=== PATIENT | female | born 1995 | race Caucasian/White ===

== ENCOUNTER → 2016-05-21 16:51 | Outpatient (CLI) | payer MEDICAID ==
[~2016-05-21 16:51] MED LIST: HYDROCODONE-APA1 TAB PO
== END | disposition home or self-care (01) ==
LOC: D.US 16:51
DX: R60.0 Localized edema (principal)

== ENCOUNTER 2016-05-27 12:56 | Emergency (ER) | payer MEDICAID | END 2016-05-27 13:46 | disposition home or self-care (01) | LOC: D.ER 12:56 | DX: R22.42 Localized swelling, mass and lump, left lower limb (principal); I83.92 Asymptomatic varicose veins of left lower extremity; K21.9 Gastro-esophageal reflux disease without esophagitis; F17.200 Nicotine dependence, unspecified, uncomplicated ==

== ENCOUNTER → 2016-07-29 15:21 | Outpatient (CLI) | payer MEDICAID | END | disposition home or self-care (01) | LOC: D.US 15:00 | DX: M79.605 Pain in left leg (principal); R22.42 Localized swelling, mass and lump, left lower limb ==

== ENCOUNTER → 2016-09-04 15:44 | Outpatient (CLI) | payer MEDICAID ==
[2016-09-04 16:47] LABS: UDS - AMPHET NEGATIVE QUAL (NEGATIVE); UDS - BARB NEGATIVE QUAL (NEGATIVE); UDS - BENZO NEGATIVE QUAL (NEGATIVE); UDS - COCAINE NEGATIVE QUAL (NEGATIVE); UDS - METH NEGATIVE QUAL (NEGATIVE); UDS - OPIATE NEGATIVE QUAL (NEGATIVE); UDS - PCP NEGATIVE QUAL (NEGATIVE); UDS - THC POSITIVE QUAL (NEGATIVE)
[2016-09-04 16:58] LABS: APPEARANCE CLEAR (CLEAR); BILIRUBIN NEGATIVE (NEGATIVE); COLOR YELLOW (YELLOW); GLUCOSE NEGATIVE (NEGATIVE); KETONE NEGATIVE (NEGATIVE); LEUKOCYTE ESTERASE NEGATIVE (NEGATIVE); NITRITE NEGATIVE (NEGATIVE); PROTEIN NEGATIVE (NEGATIVE); UROBILINOGEN NORMAL (NORMAL)
[2016-09-08 11:16] LABS: UDSC - AMPHET Negative ng/mL (Cutoff=1000); UDSC - BARB Negative ng/mL (Cutoff=300); UDSC - BENZO Negative ng/mL (Cutoff=300); UDSC - COC Negative ng/mL (Cutoff=300); UDSC - METH Negative ng/mL (Cutoff=300); UDSC - OPIATES Negative ng/mL (Cutoff=300); UDSC - PCP Negative ng/mL (Cutoff=25); UDSC - PROPOXY Negative ng/mL (Cutoff=300); UDSC - THC Positive (Cutoff=50)
== END | disposition home or self-care (01) ==
LOC: D.LDO 15:44
PROVIDERS: Obstetrics & Gynecology; Specialist
DX: O26.899 Other specified pregnancy related conditions, unspecified trimester (principal); R10.30 Lower abdominal pain, unspecified

== ENCOUNTER → 2016-09-20 16:11 | Outpatient (CLI) | payer MEDICAID ==
[2016-09-20 17:17] LABS: APPEARANCE CLEAR (CLEAR); BILIRUBIN NEGATIVE (NEGATIVE); COLOR YELLOW (YELLOW); GLUCOSE NEGATIVE (NEGATIVE); KETONE NEGATIVE (NEGATIVE); LEUKOCYTE ESTERASE NEGATIVE (NEGATIVE); NITRITE NEGATIVE (NEGATIVE); PROTEIN NEGATIVE (NEGATIVE); SPECIFIC GRAVITY 1.005 (1.005-1.020); UROBILINOGEN NORMAL (NORMAL)
[2016-09-20 17:24] LABS: UDS - AMPHET NEGATIVE QUAL (NEGATIVE); UDS - BARB NEGATIVE QUAL (NEGATIVE); UDS - BENZO NEGATIVE QUAL (NEGATIVE); UDS - COCAINE NEGATIVE QUAL (NEGATIVE); UDS - METH NEGATIVE QUAL (NEGATIVE); UDS - OPIATE NEGATIVE QUAL (NEGATIVE); UDS - PCP NEGATIVE QUAL (NEGATIVE); UDS - THC POSITIVE QUAL (NEGATIVE)
== END | disposition home or self-care (01) ==
LOC: D.LDO 16:11
PROVIDERS: Obstetrics & Gynecology
DX: Z34.83 Encounter for supervision of other normal pregnancy, third trimester (principal); Z3A.38 38 weeks gestation of pregnancy

== ENCOUNTER 2016-09-27 02:57 | Inpatient (IN) | payer MEDICAID ==
[2016-09-27] VITALS (8 sets, daily range): BP systolic 136–150; BP diastolic 72–97; Ht 157.5 cm; Wt 90.9 kg
[~2016-09-27] VITALS: Ht 157.5 cm; Wt 90.9 kg
[2016-09-27 04:16] LABS: HEMATOCRIT 39.7 % (36.0-48.0); HEMOGLOBIN 13.3 g/dL (12-16); MCH 30.8 pg (26.0-34.0); MCHC 33.5 g/dL (31.0-37.0); MCV 91.9 fL (80.0-100.0); MEAN PLATELET VOLUME 12.2 fL (7.4-10.4); RBC 4.32 10x6/uL (4.00-5.40); RDW 13.4 % (11.5-14.5); WBC 15.1 10x3/uL (4.8-10.8)
[2016-09-27 06:14] LABS: UDS - AMPHET NEGATIVE QUAL (NEGATIVE); UDS - BARB NEGATIVE QUAL (NEGATIVE); UDS - BENZO NEGATIVE QUAL (NEGATIVE); UDS - COCAINE NEGATIVE QUAL (NEGATIVE); UDS - METH NEGATIVE QUAL (NEGATIVE); UDS - OPIATE NEGATIVE QUAL (NEGATIVE); UDS - PCP NEGATIVE QUAL (NEGATIVE); UDS - THC POSITIVE QUAL (NEGATIVE)
[2016-09-27 06:49] LABS: APPEARANCE CLEAR (CLEAR); BILIRUBIN NEGATIVE (NEGATIVE); COLOR YELLOW (YELLOW); EPITHELIAL CELLS 0-5 /hpf (0-5); GLUCOSE NEGATIVE (NEGATIVE); KETONE NEGATIVE (NEGATIVE); LEUKOCYTE ESTERASE NEGATIVE (NEGATIVE); NITRITE NEGATIVE (NEGATIVE); PROTEIN 1+ mg/dL (NEGATIVE); RED CELLS - URINE OCC /hpf (0-5); UROBILINOGEN NORMAL (NORMAL); WHITE CELLS - URINE NSEEN /hpf (0-5)
--- NOTE | 2016-09-27 16:14 | NUR ---
BABY BORN AT 1530
--- NOTE | 2016-09-27 16:52 | NUR ---
FUNDUS FIRM AT UMBILICUS WITH MODERATE LOCIA
--- NOTE | 2016-09-27 17:05 | NUR ---
RECEIVED PATIENT FROM RECOVERY ROOM. ALERT AND ORIENTED. IV NS WITH 20 UNIT PITOCIN INFUSING INTO LEFT HAND, NS AT KVO INFUSING IN RIGHT HAND WITH BLOOD TUBING ATTACHED. U/U FIRM MIDLINE, RUBRA SMALL TO MOD. LOWER ABDOMINAL DRESSING DRY AND INTACT. KAT DRAINING - ATTACHED TO RIGHT THIGH WITH APPROPRIATE PROVIDED CLAMP. VS OBTAINED. SIDERAILS UP X 2, CALL LIGHT PLACED IN REACH.
--- NOTE | 2016-09-27 17:10 | NUR ---
ICE PACK PLACE OVER ABDOMINAL INCISION. PITOCIN PLACED ON ALARIS PUMP AT 125 ML/HR. DILAUDID PICK OUT HAND INITIATED. PT INSTRUCTED ON USE OF PICK OUT HAND CONTROL FOR PAIN. CURRENTLY 3/10 ON PAIN SCALE. CLEAN CHUX AND PERIPADS ON. SCDS IN PLACE AND ON PUMP WHICH IS FUNCTIONING. INSTRUCTED PT ON PURPOSE OF SCDS. ALSO INSTRUCTED SHE WILL BE ON CLEAR LIQUID DIET AND WHEN SHE WILL BE ABLE TO SEE . VERBALIZED UNDERSTANDING. INSTRUCTED ON USE OF INCENTIVE SPIROMETER, PURPOSE AND FREQUENCY. PT DEMONSTRATED APPROPRIATE USE AFTER EXPLANAITION. U/U FIRM, RUBRA SMALL TO MOD. KAT CATH EMPTIED OF 500 ML URINE. SIDE RAILS UP, CALL LIGHT IN REACH.
--- NOTE | 2016-09-27 17:30 | NUR ---
U/U FIRM MIDLINE. RUBRA SMALL TO MOD. TWO PERIPADS PLACED AT THIS TIME. ASKED ABOUT SEEING INFANT. EXPLAINED THAT WILL BE ABLE TO COME OUT OF NURSERY KAL WHEN TEMPERATURE IS WNL. VERBALIZED UNDERSTANDING. TOOK SEVERAL SIPS OF WATER AND TOLERATED WELL.
--- NOTE | 2016-09-27 17:45 | NUR ---
U/U FIRM MIDLINE. RUBRA SMALL TO MOD. ONE PERIPAD REMOVED AND ONE LEFT IN PLACE. WAITING ON TO COME TO ROOM. VISITORS AT BEDSIDE. CALL LIGHT IN REACH.
--- NOTE | 2016-09-27 18:05 | NUR ---
PT SITTING UP IN BED TALKING WITH VISITORS. HOB LOWERED SL - FUNDUS UU/SMALL LOCHIA NOTED ON PAD. NO CLOTS - PERINEAL AREA CLEANSED- PAD CHANGED.
--- NOTE | 2016-09-27 19:10 | NUR ---
AWAKE DURING INITIAL ROUNDS. INTRODUCED SELF. INFORMED PT REGARDING TRANSFER TO [facility]. STATUS POST PRIMARY C/S TODAY FOR FAILURE TO DESCEND. IVF--NS + 20 units PITOCIN TO L HAND. IV SITE OK. SALINE LOCK TO R HAND. KAT CATH TO DRAINAGE BAG--PATENT. ON DILAUDID TRIAL MGR FOR PAIN MANAGEMENT. SCD's TO BOTH LOWER EXTREMITIES TO PREVENT DVT. INCENTIVE SPIROMETER AT BEDSIDE. INFANT IN THE ROOM FOR FEEDINGS. FAMILY HERE.
--- NOTE | 2016-09-27 19:54 | NUR ---
MTL TO ROOM TO DRAW LAB. BACK TO NURSES STATION REPORTS THAT PT IS DIAPHORITIC AND PALE. RN TO ROOM. VSS. FUNDUS FIRM, U2 WITH SMALL AMT RUBRA, NO CLOTS. PT IS TEARFUL AT THIS TIME. STATES THAT SHE IS CONCERNED SINCE [facility] IS HERE TALKING WITH HER REGARDING POSSIBLE HOLD ON HER . PATIENT'S MOTHER IS IN HER ROOM AND PT IS DISCUSSING SITUATION WITH HER. PT REQUEST "A FEW MORE MINUTES TO TALK WITH MY MOM" BEFORE [facility] PERSONEL ARE BACK TO ROOM.
[2016-09-27 19:58] LABS: HEMATOCRIT 37.2 % (36.0-48.0); HEMOGLOBIN 12.4 g/dL (12-16); MCH 30.9 pg (26.0-34.0); MCHC 33.3 g/dL (31.0-37.0); MCV 92.8 fL (80.0-100.0); PLATELET COUNT 204 10x3/uL (130-400); RBC 4.01 10x6/uL (4.00-5.40); RDW 13.6 % (11.5-14.5)
[2016-09-27 20:06] LABS: CALC OSMOLALITY 274 mosm/kg (275-300); CALCIUM 8.4 mg/dL (8.5-10.1); CARBON DIOXIDE 21.5 mmol/L (21.0-32.0); CHLORIDE - SERUM 106 mmol/L (98-107); CREATININE - SERUM 0.6 mg/dL (0.6-1.3); GLUCOSE 90 mg/dL (74-106); POTASSIUM - SERUM 3.4 mmol/L (3.5-5.1); SODIUM 139 mmol/L (136-145); UREA NITROGEN 5 mg/dL (7-18); eGFR NON AFRICAN AMERICAN > 90 mL/min (90-120)
--- NOTE | 2016-09-27 20:10 | NUR ---
DHS WORKER BACK TO ROOM.
[2016-09-27 20:21] LABS: LYMPHOCYTES 6 % (15-50); MONOCYTES 3 % (2-11); NEUTROPHILS 86 % (40-80); PLATELET ESTIMATE NORMAL
--- NOTE | 2016-09-27 20:30 | NUR ---
TRANSFERRED TO ROOM 1221 VIA BED.
--- NOTE | 2016-09-27 20:35 | NUR ---
NURSERY NURSE BROUGHT BABY TO MOM IN OPEN CRIB.
--- NOTE | 2016-09-27 21:30 | NUR ---
KAT/DEVAN-CARE DONE. LIGHT LOCHIA RUBRA. DEVAN-PAD CHANGED. KAT CATH BAG EMPTIED.
--- NOTE | 2016-09-27 23:00 | NUR ---
REFILLED ICE PACK TO ABD.
--- NOTE | 2016-09-27 23:24 | NUR ---
V/S RECHECKED. IN THE ROOM IN OPEN CRIB.
--- NOTE | 2016-09-28 01:10 | NUR ---
EYES CLOSED. LEFT UNDISTURBED.
--- NOTE | 2016-09-28 04:05 | NUR ---
PROFESSOR OF SOCIOLOGY HERE TO DRAW AM LAB.
[2016-09-28 04:24] VITALS: BP 125/77
--- NOTE | 2016-09-28 04:24 | NUR ---
V/S STABLE. KAT CATH BAG EMPTIED. IV PUMP CLEARED. IN THE ROOM.
[2016-09-28 04:49] LABS: BASOPHILS 0.1 % (0-2); EOSINOPHILS 0.3 % (0-7); HEMOGLOBIN 11.5 g/dL (12-16); IMMATURE GRANULOCYTES 0.6 % (0-5); LYMPHOCYTES 9.9 % (15-50); MCH 30.9 pg (26.0-34.0); MCHC 33.8 g/dL (31.0-37.0); MCV 91.4 fL (80.0-100.0); MEAN PLATELET VOLUME 12.2 fL (7.4-10.4); MONOCYTES 6.9 % (2-11); NEUTROPHILS 82.2 % (40-80); PLATELET COUNT 194 10x3/uL (130-400); RBC 3.72 10x6/uL (4.00-5.40); RDW 13.3 % (11.5-14.5)
[2016-09-28 04:52] LABS: CALC OSMOLALITY 271 mosm/kg (275-300); CALCIUM 8.1 mg/dL (8.5-10.1); CARBON DIOXIDE 23.1 mmol/L (21.0-32.0); CHLORIDE - SERUM 106 mmol/L (98-107); CREATININE - SERUM 0.5 mg/dL (0.6-1.3); GLUCOSE 85 mg/dL (74-106); POTASSIUM - SERUM 3.9 mmol/L (3.5-5.1); SODIUM 138 mmol/L (136-145); UREA NITROGEN 5 mg/dL (7-18); eGFR NON AFRICAN AMERICAN > 90 mL/min (90-120)
--- NOTE | 2016-09-28 05:23 | NUR ---
REFILLED ICE PACK TO ABD. SLEPT ON AND OFF DURING THE NIGHT. CONTINUING PLAN OF CARE.
--- NOTE | 2016-09-28 06:25 | NUR ---
SLEPT FAIRLY DURING THE NIGHT. CONTINUING PLAN OF CARE.
--- NOTE | 2016-09-28 07:15 | NUR ---
DR. HERRERA ON UNIT, ROUNDING ON PT.
--- NOTE | 2016-09-28 07:15 | NUR ---
PT IS SITTING UP IN THE BED, VISITOR AT BEDSIDE. PT DENIES NEEDS AT THIS TIME. SR UP X 2, CALL LIGHT AND PHONE WITHIN REACH.
[2016-09-28 07:20] VITALS: BP 129/75
--- NOTE | 2016-09-28 08:15 | NUR ---
IV SALINE LOCKED, FLUSHES EASILY WITH 10 CC'S NS. SCD'S REMOVED. KAT CATH REMOVED WITH 400 MLS URINE EMPTIED. PERICARE DONE WITH FOAM CLEANSER, FUNDUS FIRM, U/1, SCANT RUBRA LOCHIA, NO CLOTS. PERITOWEL CHANGED. PERIPAD APPLIED. INCISION C/D/I WITH HENRY. CLEAN PERIPAD PLACED OVER INCISION FOR COMFORT. SRUP X 2, CALL LIGHT AND PHONE WITHIN REACH.
--- NOTE | 2016-09-28 08:30 | NUR ---
PT WISHES TO GET OUT OF THE BED, ASSISTED UP, PT TO BEDSIDE CHAIR. GAIT SLOW, BUT STEADY. PT USING ABD PILLOW FOR SUPPORT AND COMFORT. BED LINENS CHANGED. CLEAN LINENS PROVIDED. PT SERVED LEMON [place] SODA. DENIES OTHER NEEDS AT THIS TIME. SR UP X 2, CALL LIGHT AND PHONE WITHIN REACH.
--- NOTE | 2016-09-28 09:00 | NUR ---
PT UP TO BR, VOIDS 300 ML'S IN [place] HAT. DENIES NEEDS AT THIS TIME.
--- NOTE | 2016-09-28 10:30 | NUR ---
PT AMBULATORY IN ROOM, UP TO BR, VOIDS 150 ML'S IN [facility]. DENIES OTHER NEEDS AT THIS TIME. PT'S GRANDMOTHER AT BEDSIDE.
--- NOTE | 2016-09-28 13:09 | NUR ---
PT CALLS OUT GUSSET FOLDER LIGHT AND REQUESTS PAIN MEDICATION, SEE EMAR. L[place]ON [place] SODA SERVED. SR UP X 2, CALL LIGHT AND PHONE WITHIN REACH. PT'S GRANDMOTHER REMAINS AT BEDSIDE.
--- NOTE | 2016-09-28 13:20 | NUR ---
PT UP TO SHOWER, CLEAN LINENS PROVIDED. PT'S GRANDMOTHER IN ROOM.
--- NOTE | 2016-09-28 15:00 | NUR ---
PT AMBULATORY IN DIAZ, PT DENIES NEEDS AT THIS TIME.
--- NOTE | 2016-09-28 19:00 | NUR ---
REPORT GIVEN TO Carmelita VAZQUEZ RN.
--- NOTE | 2016-09-28 19:06 | NUR ---
CM met w/ the mother and grandmother, Sabine George, at the bedside. The mother is complaining of some discomfort but has spoken with the nurse. She gives permission to continue the interview. She also gave permission to speak with the grandmother present in the room. MS Yeung has a 4 year son who is with her. They live w/ the grandmother. She has the baby setup with crib, diapers, clothing and all necessary supplies. The car seat is coming tomorrow. The father of the baby is also the father to the 4 year old. He will not be involved in the infant's care. Her mother , Nancy Fiore, will also assist. MS George has been employed w/ [employer] on [address] for 5 yrs. She states she has "never been in any trouble, I don't even have a traffic ticket". She states she had difficulty w/ varicose vein and pain w/ this , that is why she had the THC. She admits to smoking and has requested a nicotine patch. Nurse's will follow up with the no smoking program offer at discharge. She voiced concern regarding [employer] 72 hr hold. However she states the worker said he spoke w/ his planning supervisor and she said the hold is not necessary. No documentation on the chart at this time. Will have nursery staff to call in the AM to clarify. Mrs Fiore has been waiting for the DHS worker to come to the grandmother's house for home inspection. He has not called or come as of 1924. She called him x2. DR Zack Velarde will be the pediatric MD for the . He is also the 2 yr old doctor. Patient denies any needs at this time. Just wants to take her baby home on Wednesday. She will have transportation to home. She is anxious to clarify the 72 hr hold question. No questions at this time. No additional concerns. She is happy about the infants and states her son, Ray, is waiting and happy about the new baby. She states her first child did have pyloric stenosis and was eventually seen at [facility]. CM will follow to assist as is appropriate.
[2016-09-28 19:44] VITALS: BP 133/67
--- NOTE | 2016-09-28 19:44 | NUR ---
ASSESSMENT PER FLOW SHEET, VS OBTAINED, SALINE LOCK IN LEFT HAND INTACT WITH NO REDNESS OR EDEMA, FF, ML, U/1, PT REPORTS LITE BLEEDING WITH NO CLOTS, BIKINI INC WITH HENRY CDI WITH NO DRAINAGE NOTED, DEVAN PAD OVER INC FOR COMFORT AND MOISTURE CONTROL, PT DENIES FLATUS, NO BM AND VOIDING BY SELF WITH NO DIFFICULTY, PT RATES INC PAIN 10/03, ADM NORCO PO PER MD ORDERS, SEE EMAR, PT DENIES FURTHER NEEDS
--- NOTE | 2016-09-28 19:57 | NUR ---
BABY TO ROOM VIA OPEN CRIB CART PER MYRNA LEW, RN
--- NOTE | 2016-09-28 20:20 | NUR ---
PT VISITING WITH FAMILY AND FRIENDS, FEMALE HOLDING BABY, PT REQUESTS NICOTINE PATCH, INFORMED PT THAT I WILL CALL THE DOCTOR TO GET AN ORDER FOR IT, PT VERBALIZES UNDERSTANDING, REPORTS "PAIN IS GETTING BETTER"
--- NOTE | 2016-09-28 20:30 | NUR ---
DR BELTRAN CALLED, REPORT OF PT'S NEEDING NICOTINE PATCH, ORDERS RECEIVED
--- NOTE | 2016-09-28 21:00 | NUR ---
DEVAN PADS PROVIDED, PT INFORMED THAT I AM WAITING ON THE PHARMACY TO BRING PATCH, PT VERBALIZES UNDERSTANDING, RATES INC PAIN 07/03, DENIES FURTHER NEEDS
--- NOTE | 2016-09-28 22:00 | NUR ---
ADM NICOTINE PATCH, PT READY FOR BED, BABY TO NSY VIA OPEN CRIB CART PER THIS RN, PT DENIES FURTHER NEEDS
--- NOTE | 2016-09-29 00:30 | NUR ---
PT RESTING WITH EYES CLOSED, RESP QUIET, NO DISTRESS NOTED, LEFT UNDISTURBED AT THIS TIME, PT'S GRANDMOTHER ASLEEP IN RECLINER
--- NOTE | 2016-09-29 02:11 | NUR ---
PT RESTING WITH EYES CLOSED, RESP QUIET, NO DISTRESS NOTED, LEFT UNDISTURBED AT THIS TIME, PT'S GRANDMA ASLEEP IN RECLINER
[2016-09-29 04:30] VITALS: BP 142/82
--- NOTE | 2016-09-29 04:30 | NUR ---
PT AWAKE, VS OBTAINED, ADM NORCO AND MOTRIN PO PER MD ORDERS, SEE EMAR, WITH FRESH H20, PT DENIES FURTHER NEEDS, GRANDMOTHER ASLEEP IN RECLINER
--- NOTE | 2016-09-29 05:00 | NUR ---
PT CHIEF NUCLEAR MEDICINE TECHNOLOGIST LIGHT, PT C/O DISCOMFORT WITH SALINE LOCK, REQUESTS THAT IT BE REMOVED, SALINE LOCK D/C'ED, TIP INTACT, PRESSURE HELD, BANDAID APPLIED, PT REPORTS PAIN IS "BETTER", DENIES FURTHER NEEDS, BABY AND PT'S GRANDMOTHER AT BEDSIDE
[2016-09-29 06:14] LABS: RAPID PLASMA REAGIN Non Reactive (Non Reactive)
[2016-09-29 06:30] LABS: CALC OSMOLALITY 272 mosm/kg (275-300); CALCIUM 8.5 mg/dL (8.5-10.1); CHLORIDE - SERUM 104 mmol/L (98-107); CREATININE - SERUM 0.6 mg/dL (0.6-1.3); GLUCOSE 91 mg/dL (74-106); POTASSIUM - SERUM 3.9 mmol/L (3.5-5.1); SODIUM 137 mmol/L (136-145); eGFR NON AFRICAN AMERICAN > 90 mL/min (90-120)
[2016-09-29 06:38] LABS: UREA NITROGEN 9 mg/dL (7-18)
--- NOTE | 2016-09-29 06:55 | NUR ---
SHIFT REPORT TO VANE MOON RN
[2016-09-29 07:20] VITALS: BP 129/80
[2016-09-29 07:28] LABS: BASOPHILS 0.2 % (0-2); EOSINOPHILS 0.9 % (0-7); HEMATOCRIT 32.7 % (36.0-48.0); HEMOGLOBIN 10.9 g/dL (12-16); IMMATURE GRANULOCYTES 0.7 % (0-5); LYMPHOCYTES 13.2 % (15-50); MCH 30.7 pg (26.0-34.0); MCHC 33.3 g/dL (31.0-37.0); MCV 92.1 fL (80.0-100.0); MEAN PLATELET VOLUME 12.3 fL (7.4-10.4); MONOCYTES 8.3 % (2-11); NEUTROPHILS 76.7 % (40-80); RBC 3.55 10x6/uL (4.00-5.40); RDW 13.9 % (11.5-14.5); WBC 18.1 10x3/uL (4.8-10.8)
--- NOTE | 2016-09-29 07:30 | NUR ---
PT IS RECEIVED SITTING UP ON THE SIDE OF THE BED. BABY AT BEDSIDE. HER PAIN LEVEL IS A 3. GEN- AWAKE AND ALERT. LUNGS- CLEAR. HEART- RRR. ABD- SOFT, WITH TENDERNESS NOTED. BIKINI LINE INCISION WITH HENRY NOTED. CLEAN DRY AND INTACT. DEVAN PAD IS OVER INCISION. EXT. NO EDEMA NOTED. BED IS LOW. SIDE RAILS UP X 2 AND CALL LIGHT IN REACH. VSS. SHE HAS BEEN VOIDING WITHOUT DIFFICULTY.
[2016-09-29 07:31] LABS: PLATELET COUNT 260 10x3/uL (130-400)
--- NOTE | 2016-09-29 08:10 | NUR ---
DR HERRERA IS HERE TO SEE PT. NEW ORDERS NOTED.
--- NOTE | 2016-09-29 08:23 | OP ---
PATIENT NAME: GEETHA WELLS MEDICAL RECORD: [id number] :93 LOCATION:[facility] D.1221 ADMISSION DATE:09/27/16 SURGEON: MATEO ROJAS MD DATE OF OPERATION: 09/27/2016 PREOPERATIVE DIAGNOSES: 1. Term intrauterine at 38 weeks. 2. Spontaneous rupture of membranes. 3. Labor. 4. Arrest of descent. POSTOPERATIVE DIAGNOSES: 1. Term intrauterine at 38 weeks. 2. Spontaneous rupture of membranes. 3. Labor. 4. Arrest of descent. 5. Suspected cephalopelvic disproportion. PROCEDURE: Primary low transverse section, repair of vertical uterine extension. SURGEON: Mateo Rojas MD ANESTHESIA: Epidural. INTRAVENOUS FLUIDS: Per anesthesia records. ESTIMATED BLOOD LOSS: 1500 cc. SPECIMENS: Placenta and cord for gases. FINDINGS: 1. Viable infant, Apgars pending at time of dictation. 2. Particulate meconium. 3. Grossly normal adnexa bilaterally. 4. Placenta delivered manually intact, 3-vessel cord noted. 5. Vertical extension of the uterine incision on the left hand aspect. COMPLICATIONS: Uterine cervical extension as mentioned. DESCRIPTION OF PROCEDURE: The patient taken to the operating room where epidural anesthesia was achieved without difficulty. The patient was then prepped and draped in normal sterile fashion in the dorsal supine position. Marina catheter had been placed and was draining minimal amounts of urine. SCDs were on and functioning normally. Following prep and drape, the Pfannenstiel skin incision was made, extended downward to the underlying subcutaneous fat to level of the fascia, which was then excised in the midline with a scalpel and extended bilaterally using the Cristobal scissors. The superior and inferior aspects of the fascial incision were then grasped with Jackson clamps times 2, tented upward, and sharply dissected from the underlying rectus muscle using the Cristobal scissors and the Bovie cautery. At this point, the rectus muscles were bluntly in the midline and the peritoneum entered at the superior aspect of the incision using the Metzenbaum scissors. Upon entry into the pelvis, the bladder was noted to be very high into the field. Careful dissection was performed and a bladder blade was placed into the pelvis. A OPERATIVE REPORT [id number] GEETHA WELLS bladder flap was created and a low transverse incision made and extended superiorly and inferiorly using the Pelosi method. Upon uterine incision, umbilical cord and arm began to deliver. At this point, immediately the head was delivered from its place deep into the pelvis atraumatically. Infant was then delivered atraumatically. Suctioning was performed. The cord was clamped times 2, cut and the infant was handed to awaiting nursery team. Cord was then obtained for gases and placenta was removed manually and intact. At this point, the uterus was exteriorized and massaged thoroughly until good tone was noted. Attention was then turned to the lower uterine segment, which was found to be having a downward vertical extension on the left hand aspect into the cervix. No evidence of involvement of the bladder was noted. The vertical extension was medial of the uterine vessels and appeared to be medial to the ureter. The margins of the uterine incision were grasped with Allis clamps and ring forceps. The uterine incision repair was begun on the right, extended in a running locked fashion with 0 Vicryl downward towards near the end of the vertical extension. At this point, a second suture was used. The corner of the vertical fashion was grasped with an Allis clamp and very carefully oversewn back towards the uterine incision. A second layer of 0 Vicryl was then placed and good hemostasis was noted. FloSeal was placed upon the cervical extension and again no evidence of bladder or ureter damage was noted. Posterior cul-de-sac was then thoroughly irrigated and the uterus was replaced into the pelvis. The uterine incision appeared to be hemostatic and FloSeal was placed along its entirety. Counts were correct times 2. The fascia was then repaired with 0 loop PDS. After the initial 4-5 throws of the PDS suture, the surgeon had a needlestick, at which point glove was changed and the needle was removed and not replaced into the patient. The 0 PDS suture was then tied at that spot. A second 0 loop PDS was then begun oversewing the last 2-3 throws of the previous 0 Vicryl and continued across the entirety of the fascial incision with extreme care to avoid the underlying bladder and omentum. At this point, a second anchor of 0 Vicryl in a [id number]-vu-[id number] fashion was placed upon the initial PDS placement. The skin was repaired with patricia. The patient tolerated the procedure well, transferred to postanesthesia recovery stable without incident. TRANSINT:[id number] Voice Confirmation ID: [id number] DOCUMENT ID: [id number] MATEO ROJAS MD at 0823 CC: [id number] DICTATION DATE: 09/27/161721 CONICAL MIXER: 09/27/16 1851 ADM IN [facility] [address] [place] [address]
--- NOTE | 2016-09-29 09:00 | NUR ---
PT IS LYING IN BED. SHE IS WANTING TO GO HOME. ANXIOUS TO SEE POLISHER DIAL. DR HERRERA HAS DISCHARGED PT TO HOME. PT REFUSED HER NICODERM PATCH. SHE STATES THAT SHE DOES NOT NEED IT.
[2016-09-29] MEDS ORDERED: IBUPROFEN100 MG/5 M (10:26)
[2016-09-29] MEDS ORDERED: HYDROCODONE-APA1 TAB PO (10:27)
--- NOTE | 2016-09-29 10:53 | NUR ---
DISCHARGE INSTRUCTIONS DISCUSSED WITH PT. PT IS ANXIOUS AND READY TO GO HOME. SHE STATES HER MOTHER HAD TO RUN HOME FOR [employer] TO COME DO HOME INSPECTION. RHOGAM INJECTION GIVEN LEFT DELTOID.
--- NOTE | 2016-09-29 11:30 | NUR ---
PTS DISCHARGE INSTRUCTIONS WERE DISCUSSED WITH PATIENT. PRESCRIPTIONS, FOLLOW UP APPOINTMENTS AND DISCHARGE INSTRUCTIONS WERE ALL GIVEN TO PT.
--- NOTE | 2016-09-29 12:30 | NUR ---
PT DISCHARGED. SHE WAS TAKEN TO HER CAR BY WHEELCHAIR, HOLDING BABY IN HER LAP IN CARSEAT.
== END 2016-09-29 12:31 | disposition home or self-care (01) | DRG 766 ==
LOC: D.LDO 02:57 → D.LD 03:09 → D.WS 03:09 → D.LD 17:09 → D.WS 20:29
PROVIDERS: ADMIT Obstetrics & Gynecology
PROC: 10D00Z1 Extraction of Products of Conception, Low, Open Approach (ICD-10-PCS; principal; 2016-09-27 15:17)
DX: O99.324 Drug use complicating childbirth (principal); F12.90 Cannabis use, unspecified, uncomplicated; O99.334 Smoking (tobacco) complicating childbirth; O33.9 Maternal care for disproportion, unspecified; O77.0 Labor and delivery complicated by meconium in amniotic fluid; Z3A.39 39 weeks gestation of pregnancy; Z37.0 Single live birth; O26.893 Other specified pregnancy related conditions, third trimester; Z67.91 Unspecified blood type, Rh negative

== ENCOUNTER 2017-02-03 19:19 | Emergency (ER) | payer MEDICAID ==
[2016-09-27 03:35] VITALS: BMI 36.6
[~2017-02-03 19:19] MED LIST changes: +IBUPROFEN100 MG/5 M
== END 2017-02-03 21:53 | disposition home or self-care (01) ==
LOC: D.ER 19:19
DX: L42 Pityriasis rosea (principal); K21.9 Gastro-esophageal reflux disease without esophagitis

== ENCOUNTER 2017-05-27 16:38 | Emergency (ER) | payer MEDICAID ==
[2016-09-27 03:35] VITALS: BMI 36.6
== END 2017-05-27 19:30 | disposition home or self-care (01) ==
LOC: D.ER 16:38
DX: K08.89 Other specified disorders of teeth and supporting structures (principal); K21.9 Gastro-esophageal reflux disease without esophagitis

== ENCOUNTER 2017-08-15 16:34 | Emergency (ER) | payer MEDICAID ==
[2016-09-27 03:35] VITALS: BMI 36.6
== END 2017-08-15 17:15 | disposition home or self-care (01) ==
LOC: D.ER 16:34
DX: K02.9 Dental caries, unspecified (principal); K04.7 Periapical abscess without sinus; K21.9 Gastro-esophageal reflux disease without esophagitis; F17.200 Nicotine dependence, unspecified, uncomplicated

== ENCOUNTER 2019-02-20 16:22 | Emergency (ER) | payer MEDICAID ==
[~2019-02-20] VITALS: Ht 154.9 cm; Wt 77.3 kg
[2019-02-20 16:42] VITALS: Ht 154.9 cm; Wt 77.3 kg
[2019-02-20 17:13] LABS: BASOPHILS 0.5 % (0-2); EOSINOPHILS 2.7 % (0-7); HEMATOCRIT 39.6 % (36.0-48.0); IMMATURE GRANULOCYTES 0.2 % (0-5); LYMPHOCYTES 28.4 % (15-50); MCH 30.3 pg (26.0-34.0); MCHC 32.8 g/dL (31.0-37.0); MCV 92.3 fL (80.0-100.0); MEAN PLATELET VOLUME 10.3 fL (7.4-10.4); NEUTROPHILS 60.2 % (40-80); PLATELET COUNT 289 10x3/uL (130-400); RBC 4.29 10x6/uL (4.00-5.40); RDW 13.5 % (11.5-14.5); WBC 8.7 10x3/uL (4.8-10.8)
[2019-02-20 17:42] LABS: CALC OSMOLALITY 288 mosm/kg (275-300); CALCIUM 7.8 mg/dL (8.5-10.1); CARBON DIOXIDE 26.2 mmol/L (21.0-32.0); CHLORIDE - SERUM 110 mmol/L (98-107); CREATININE - SERUM 0.7 mg/dL (0.6-1.3); GLUCOSE 98 mg/dL (74-106); POTASSIUM - SERUM 3.5 mmol/L (3.5-5.1); SODIUM 145 mmol/L (136-145); UREA NITROGEN 12 mg/dL (7-18); eGFR NON AFRICAN AMERICAN > 90 mL/min (90-120)
[2019-02-20 17:48] LABS: ALBUMIN 3.1 g/dL (3.4-5.0); ALKALINE PHOSPHATASE 88 U/L (46-116); ALT (SGPT) 20 U/L (10-68); BILIRUBIN - TOTAL 0.15 mg/dL (0.2-1.3); PROTEIN - SERUM 6.6 g/dL (6.4-8.2)
[2019-02-20] MEDS ORDERED: TYLENOL W/CODEI1 TAB PO (18:34)
[2019-02-20] MEDS ORDERED: IBUPROFEN800 MG PO (18:34)
[2019-02-20] MEDS ORDERED: CLEOCIN HCL300 MG PO (18:34)
[2019-02-20 19:09] VITALS: BP 138/72
== END 2019-02-20 19:02 | disposition home or self-care (01) ==
LOC: D.ER 16:22
PROVIDERS: Family Medicine
DX: K04.7 Periapical abscess without sinus (principal); F17.210 Nicotine dependence, cigarettes, uncomplicated

== ENCOUNTER 2019-02-24 10:06 | Inpatient (IN) | payer MEDICAID ==
[~2019-02-24] VITALS: Ht 154.9 cm; Wt 77.3 kg
[~2019-02-24 10:06] MED LIST changes: +CLEOCIN HCL300 MG PO; +IBUPROFEN800 MG PO; +TYLENOL W/CODEI1 TAB PO
[2019-02-24 13:10] LABS: BASOPHILS 0.4 % (0-2); HEMOGLOBIN 14.2 g/dL (12-16); IMMATURE GRANULOCYTES 0.3 % (0-5); LYMPHOCYTES 21.2 % (15-50); MCH 30.4 pg (26.0-34.0); MCV 92.1 fL (80.0-100.0); MEAN PLATELET VOLUME 10.3 fL (7.4-10.4); NEUTROPHILS 68.1 % (40-80); PLATELET COUNT 300 10x3/uL (130-400); RBC 4.67 10x6/uL (4.00-5.40); RDW 13.6 % (11.5-14.5); WBC 10.7 10x3/uL (4.8-10.8)
--- NOTE | 2019-02-24 13:29 | NUR ---
DR WATSON HERE TO SEE PT. WILL TAKE TO OR. CONSENTS OBTAINED. VSS. NO DISTRESS.
[2019-02-24 13:53] LABS: CALC OSMOLALITY 273 mosm/kg (275-300); CALCIUM 8.9 mg/dL (8.5-10.1); CARBON DIOXIDE 27.2 mmol/L (21.0-32.0); CHLORIDE - SERUM 104 mmol/L (98-107); CREATININE - SERUM 0.6 mg/dL (0.6-1.3); GLUCOSE 77 mg/dL (74-106); POTASSIUM - SERUM 4.3 mmol/L (3.5-5.1); SODIUM 138 mmol/L (136-145); UREA NITROGEN 10 mg/dL (7-18); eGFR NON AFRICAN AMERICAN > 90 mL/min (90-120)
[2019-02-24 13:59] LABS: ALBUMIN 3.6 g/dL (3.4-5.0); ALKALINE PHOSPHATASE 87 U/L (46-116); ALT (SGPT) 25 U/L (10-68); BILIRUBIN - TOTAL 0.26 mg/dL (0.2-1.3); PROTEIN - SERUM 7.7 g/dL (6.4-8.2)
[2019-02-24 14:01] LABS: HCG SERUM NEGATIVE (NEGATIVE)
--- NOTE | 2019-02-24 14:42 | NUR ---
OR STAFF HERE TO BRING TO OR INSTEAD OF ROOM. REPORT TO OR. PATIENT CARE RELEASED TO RN.
--- NOTE | 2019-02-24 16:55 | NUR ---
PT NOTED HAVING LARGED RAISED RED ABSCESS ON RIGHT SIF=DE OF FACE BETWEEN CHIN AND CHEEK. MILD SWELLING NOTED NEAR EYE AREA PRIOR TO PROCEDURE START.
--- NOTE | 2019-02-24 18:45 | NUR ---
PATIENT IN BED WITH EYES CLOSED RESTING. VS STABLE. IV INTACT. TOLERATED REGULAR DIET. CALL LIGHT WITHIN REACH.
[2019-02-24 19:43] VITALS: BP 148/80; BMI 32.2
[2019-02-24 20:19] VITALS: Ht 154.9 cm; Wt 77.3 kg
--- NOTE | 2019-02-24 20:23 | NUR ---
AWAKE,ALERT.COMPLAITNS OF PAIN 11/02. MORPHINE 4 MG GIVEN IV PER ORDERS. IV SITE TO RFA INTACT WITHOUT REDNESS OR EDEMA NOTED. DRESSING INTACT TO RIGHT CHEECK WITH OLD DRIED DRAINAGE NOTED. FAMILY AT BEDSIDE3. CL IN REACH
[2019-02-24 21:36] VITALS: BP 156/78
--- NOTE | 2019-02-24 22:38 | NUR ---
REFUSED SCD AT THIS TIME.
[2019-02-25 01:05] VITALS: BP 140/74
--- NOTE | 2019-02-25 04:16 | NUR ---
I have reviewed this patient and I concur with the Shift Assessment completed by the Licensed Practical Nurse today this shift.
[2019-02-25 05:16] VITALS: BP 126/75
[2019-02-25 06:48] LABS: BASOPHILS 0.5 % (0-2); EOSINOPHILS 3.4 % (0-7); HEMATOCRIT 41.5 % (36.0-48.0); HEMOGLOBIN 13.5 g/dL (12-16); IMMATURE GRANULOCYTES 0.3 % (0-5); LYMPHOCYTES 30.4 % (15-50); MCH 30.2 pg (26.0-34.0); MCHC 32.5 g/dL (31.0-37.0); MCV 92.8 fL (80.0-100.0); MONOCYTES 8.5 % (2-11); NEUTROPHILS 56.9 % (40-80); PLATELET COUNT 350 10x3/uL (130-400); RBC 4.47 10x6/uL (4.00-5.40); RDW 13.6 % (11.5-14.5)
[2019-02-25 06:49] LABS: WBC 7.6 10x3/uL (4.8-10.8)
[2019-02-25 07:26] LABS: ALKALINE PHOSPHATASE 84 U/L (46-116); ALT (SGPT) 22 U/L (10-68); BILIRUBIN - TOTAL 0.23 mg/dL (0.2-1.3); CALCIUM 8.6 mg/dL (8.5-10.1); CARBON DIOXIDE 24.8 mmol/L (21.0-32.0); CHLORIDE - SERUM 107 mmol/L (98-107); CREATININE - SERUM 0.7 mg/dL (0.6-1.3); GLUCOSE 77 mg/dL (74-106); POTASSIUM - SERUM 3.9 mmol/L (3.5-5.1); PROTEIN - SERUM 7.6 g/dL (6.4-8.2); SODIUM 141 mmol/L (136-145); eGFR NON AFRICAN AMERICAN > 90 mL/min (90-120)
[2019-02-25 07:27] LABS: CALC OSMOLALITY 277 mosm/kg (275-300); UREA NITROGEN 6 mg/dL (7-18)
[2019-02-25 07:56] VITALS: BP 133/68
--- NOTE | 2019-02-25 08:30 | NUR ---
PATIENT IN BED WITH IV INTACT. NO COMPLAINTS AT THIS TIME. FAMILY AT BEDSIDE. CALL LIGHT WITHIN REACH.
--- NOTE | 2019-02-25 09:00 | NUR ---
PATIENT UP AMBULATING IN DIAZ WITH MOTHER.
--- NOTE | 2019-02-25 12:30 | NUR ---
PATIENT IN BED WITH IV INTACT. NO COMPLAINTS OR SIGNS OF DISTRESS. SITTING UP EATING. CALL LIGHT WITHIN REACH.
[2019-02-25 14:24] VITALS: BP 103/61
--- NOTE | 2019-02-25 15:45 | NUR ---
PATIENT UP IN [place] AMBULATING AT THIS TIME. IV INTACT.
--- NOTE | 2019-02-25 17:30 | NUR ---
PATIENT UP AMBULATING IN [place] WITH IV INTACT.
--- NOTE | 2019-02-25 18:42 | NUR ---
PATIENT IN BED WITH IV INTACT. NO COMPLAINTS AT THIS TIME. DRESSING TO FACE INTACT. FAMILY AT BEDSIDE. CALL LIGHT WITHIN REACH.
[2019-02-25 19:30] VITALS: BP 118/57
--- NOTE | 2019-02-25 21:45 | NUR ---
AWAKE,ALERT.NO DISTRESS NOTED. IV RED AT SITE.COMPLAINTS OF TENDERNESS. IV DC WITH TIP INTACT. RESITED PER JENNY RN TO RAC X 1 ATTEMPT 20G. DRESSING TO RIGHT FACE INTACT WITH DRIED DRAINAGE NOTED. CL IN REACH
--- NOTE | 2019-02-25 23:16 | NUR ---
I have reviewed this patient and I concur with the Shift Assessment completed by the Licensed Practical Nurse today this shift.
[2019-02-26 00:30] VITALS: BP 111/78; BP 153/82
[2019-02-26 04:30] VITALS: BP 151/93
[2019-02-26 06:18] LABS: BASOPHILS 0.5 % (0-2); EOSINOPHILS 4.2 % (0-7); HEMATOCRIT 41.5 % (36.0-48.0); HEMOGLOBIN 13.6 g/dL (12-16); IMMATURE GRANULOCYTES 0.1 % (0-5); LYMPHOCYTES 25.9 % (15-50); MCH 30.1 pg (26.0-34.0); MCHC 32.8 g/dL (31.0-37.0); MCV 91.8 fL (80.0-100.0); MONOCYTES 8.4 % (2-11); NEUTROPHILS 60.9 % (40-80); PLATELET COUNT 373 10x3/uL (130-400); RBC 4.52 10x6/uL (4.00-5.40); RDW 13.4 % (11.5-14.5); WBC 7.4 10x3/uL (4.8-10.8)
[2019-02-26 06:38] LABS: ALKALINE PHOSPHATASE 80 U/L (46-116); ALT (SGPT) 21 U/L (10-68); BILIRUBIN - TOTAL 0.15 mg/dL (0.2-1.3); CALC OSMOLALITY 278 mosm/kg (275-300); CALCIUM 8.5 mg/dL (8.5-10.1); CARBON DIOXIDE 26.7 mmol/L (21.0-32.0); CHLORIDE - SERUM 106 mmol/L (98-107); CREATININE - SERUM 0.6 mg/dL (0.6-1.3); GLUCOSE 89 mg/dL (74-106); POTASSIUM - SERUM 4.1 mmol/L (3.5-5.1); PROTEIN - SERUM 7.5 g/dL (6.4-8.2); SODIUM 141 mmol/L (136-145); eGFR NON AFRICAN AMERICAN > 90 mL/min (90-120)
[2019-02-26 06:48] LABS: UREA NITROGEN 11 mg/dL (7-18)
[2019-02-26 08:09] VITALS: BP 148/73
[2019-02-26 12:28] VITALS: BP 142/79
--- NOTE | 2019-02-26 13:48 | NUR ---
PACKING TO RIGHT CHEEK REMOVED BY DR. WATSON. STATED NOT TO REPACK. CLEANED OUT WOUND WITH 20 ML OF PEROXIDE AND PLACED NEW CLEAN DRESSING ON CHEEK. PATIENT TOLERATED WITH SMALL AMOUNT OF PAIN. IV INTACT. CALL LIGHT WITHIN REACH. SL PATIENT IVF SO COULD AMBULATE WITH FAMILY.
--- NOTE | 2019-02-26 16:20 | NUR ---
PATIENT IN BED WITH IV INTACT. NO COMPLAINTS. MEDS GIVEN. FAMILY AT BEDSIDE. CALL LIGHT WITHIN REACH.
[2019-02-26 16:54] VITALS: BP 127/79
--- NOTE | 2019-02-26 18:52 | NUR ---
PATIENT IN BED WITH NO COMPLAINTS OR SIGNS OF DISTRESS. IV INTACT. NO COMPLAINTS. FAMILY AT BEDSIDE. CALL LIGHT WITHIN REACH.
[2019-02-26 19:30] VITALS: BP 140/75
--- NOTE | 2019-02-26 20:30 | NUR ---
IV TO RAC RED,COMPLAITNS OF PAIN AT SITE. IV DC'D WITH TIP INTACT. RESITED TO LAC WITH 20G X 1 ATTEMPT.DRESSING TO RIGHT FACE INTACT WITHOUT DRAINAGE NOTED. CL IN REACH
[2019-02-27 04:00] VITALS: BP 144/73
--- NOTE | 2019-02-27 04:44 | NUR ---
I have reviewed this patient and I concur with the Shift Assessment completed by the Licensed Practical Nurse today this shift.
[2019-02-27 07:45] LABS: BASOPHILS 0.6 % (0-2); EOSINOPHILS 3.9 % (0-7); HEMATOCRIT 43.3 % (36.0-48.0); HEMOGLOBIN 14.2 g/dL (12-16); IMMATURE GRANULOCYTES 0.1 % (0-5); LYMPHOCYTES 21.8 % (15-50); MCHC 32.8 g/dL (31.0-37.0); MCV 91.5 fL (80.0-100.0); MEAN PLATELET VOLUME 10.6 fL (7.4-10.4); MONOCYTES 11.7 % (2-11); NEUTROPHILS 61.9 % (40-80); PLATELET COUNT 374 10x3/uL (130-400); RBC 4.73 10x6/uL (4.00-5.40); RDW 13.3 % (11.5-14.5); WBC 6.7 10x3/uL (4.8-10.8)
[2019-02-27 08:00] LABS: ALBUMIN 3.2 g/dL (3.4-5.0); ALKALINE PHOSPHATASE 82 U/L (46-116); BILIRUBIN - TOTAL 0.19 mg/dL (0.2-1.3); CALC OSMOLALITY 276 mosm/kg (275-300); CALCIUM 8.9 mg/dL (8.5-10.1); CARBON DIOXIDE 27.4 mmol/L (21.0-32.0); CHLORIDE - SERUM 103 mmol/L (98-107); CREATININE - SERUM 0.6 mg/dL (0.6-1.3); GLUCOSE 89 mg/dL (74-106); PROTEIN - SERUM 7.8 g/dL (6.4-8.2); SODIUM 140 mmol/L (136-145); UREA NITROGEN 11 mg/dL (7-18); eGFR NON AFRICAN AMERICAN > 90 mL/min (90-120)
[2019-02-27 08:01] LABS: ALT (SGPT) 30 U/L (10-68)
[2019-02-27 08:51] VITALS: BP 114/47
--- NOTE | 2019-02-27 09:00 | NUR ---
ASSESSMENT PER FLOW SHEET. PT IS WITHOUT DISTRESS.MONITOR FOR NEEDS.
--- NOTE | 2019-02-27 10:11 | MORECARE ---
CASE MANAGEMENT DISCHARGE SUMMARY PATIENT: GEETHA WELLS UNIT: [id number] ADM DATE: 02/24/19 AGE: 23 : [birth year] SEX: F ROOM/BED: D.2226 AUTHOR: ALAN HANNON PHYSICIAN: REFERRING PHYSICIAN: CRISTINA OVERTON DO DATE OF SERVICE: 02/27/19 Discharge Plan Patient Name: GEETHA WELLS Facility: [facility]:[place] : 1995 Planned Disposition: Home Anticipated Discharge Date: 02/27/19 Discharge Date: Expected LOS: 3 Initial Reviewer: [email or web address] Initial Review Date: 02/27/2019 Generated: 02/27/19 11:11 am DCPIA - Discharge Planning Initial Assessment Updated by [email or web address]: Janine Raymond on 02/27/19 10:10 am * Is the patient Alert and Oriented? Yes * How many steps to enter\exit or inside your home? 3/0 * PCP No PCP * Pharmacy [facility] [address] * Preadmission Environment Home with Family * ADLs Independent * Equipment None * List name and contact numbers for known caregivers / representatives who currently or will assist patient after discharge: Nancy Fiore - [facility] - [phone] * Verbal permission to speak to the caregivers and representatives has been obtained from the patient. Yes * Community resources currently utilized None * Additional services required to return to the preadmission environment? No * Can the patient safely return to the preadmission environment? Yes * Has this patient been hospitalized within the prior 30 days at any hospital? No Patient Name: GEETHA WELLS Page [phone] at 1011 All edits/amendments must be made on the electronic document DICTATION DATE: 02/27/19 1011 DIP TANKER: SRAVANI 02/27/19 1011 RPT#: [id number] DC DATE: STATUS: ADM IN [facility] [address] [place] [address] END OF REPORT
--- NOTE | 2019-02-27 10:20 | MORECARE ---
CASE MANAGEMENT DISCHARGE SUMMARY PATIENT: GEETHA WELLS UNIT: [id number] ADM DATE: 02/24/19 AGE: 23 : [birth year] SEX: F ROOM/BED: D.2226 AUTHOR: RIDDHI,DOC PHYSICIAN: REFERRING PHYSICIAN: CRISTINA OVERTON DO DATE OF SERVICE: 02/27/19 Discharge Plan Patient Name: GEETHA WELLS Facility: [facility]:[place] : 1995 Planned Disposition: Home Anticipated Discharge Date: 02/27/19 Discharge Date: Expected LOS: 3 Initial Reviewer: [email or web address] Initial Review Date: 02/27/2019 Generated: 02/27/19 11:19 am Comments DCP- Discharge Planning Updated by [email or web address]: Janine Raymond on 02/27/19 9:[address] Patient Name: GEETHA WELLS Admission Status: ER Accout number: [id number] Admission Date: 02-24-2019 : 1995 Admission Diagnosis: Attending: CRISTINA OVERTON Current LOS: 3 Anticipated DC Date: 02-27-2019 Planned Disposition: Home [place]: [place] [employer] [place] Discharge Planning Comments: CM met with patient to complete initial dc planning assessment. CM educated patient on the CM role and verbal consent given by patient to complete assessment. Patient lives at home with her 2 year old, 6 year old and their father. At discharge patient plans to return and feels this is a safe discharge. CM discussed availability of home health, rehab services, and medical equipment. Patient denied known discharge needs at this time. States her mother will pick her up at discharge. CM will continue to follow and will assist as needed with dc plans/needs. Field Interviewer: Janine Raymond DCPIA - Discharge Planning Initial Assessment Updated by [email or web address]: Janine Raymond on 02/27/19 10:10 am * Is the patient Alert and Oriented? Yes * How many steps to enter\exit or inside your home? 3/0 * PCP No PCP * Pharmacy [facility] [address] * Preadmission Environment Home with Family * ADLs Independent * Equipment None * List name and contact numbers for known caregivers / representatives who currently or will assist patient after discharge: Nancy Fiore - mother - [phone] * Verbal permission to speak to the caregivers and representatives has been obtained from the patient. Yes * Community resources currently utilized None * Additional services required to return to the preadmission environment? No * Can the patient safely return to the preadmission environment? Yes * Has this patient been hospitalized within the prior 30 days at any hospital? No Last DP export: 02/27/19 9:11 a Patient Name: GEETHA WELLS Page [phone] at 1020 All edits/amendments must be made on the electronic document DICTATION DATE: 02/27/19 1019 MATERIAL ATTENDANT: SRAVANI 02/27/19 1019 RPT#: [id number] DC DATE: STATUS: ADM IN [facility] [address] [place] [address] END OF REPORT
[2019-02-27 12:30] VITALS: BP 128/86
[2019-02-27] MEDS ORDERED: DOXYCYCLINE HY100 M2 PO (13:25)
[2019-02-27] MEDS ORDERED: HYDROCODON-ACE1 EAC7 PO (14:14)
--- NOTE | 2019-02-27 16:09 | NUR ---
IV DCD WITH CATH TIP INTACT.DISCHARGE INSTRUCTIONS,STATES UNDERSTANDING.
--- NOTE | 2019-02-28 10:58 | OP ---
PATIENT NAME: GEETHA WELLS MEDICAL RECORD: [id number] :[birth year] LOCATION:[id number] ADMISSION DATE:02/24/19 SURGEON: TELLY WATSON MD DATE OF OPERATION: 02/24/2019 PREOPERATIVE DIAGNOSIS: Large carbuncle of the right cheek. POSTOPERATIVE DIAGNOSES: Large carbuncle of the right cheek. Please see dimensions below. PROCEDURE: Excisional debridement with marsupialization and packing of large carbuncle of the right cheek. The carbuncle stuck out very far. The dimensions of the carbuncle are 5 cm in the anterior/posterior dimension and 4 cm in the cephalad caudad dimension. The excised defect was 2.5 cm x 2.5 cm and included skin and subcutaneous tissue as well as a portion of the abscess cavity. SURGEON: Telly Watson MD DIETETIC ASSISTANT: None. BLOOD LOSS: 25 cc. ANESTHESIA: General. COMPLICATIONS: None. I specifically told the patient before the procedure that this would leave her with a significant cosmetic defect. The top of the carbuncle was already becoming soft and there was an impending necrosis. After excising the defect, I told the patient that she likely will need the services of a plastic surgeon in the future to excise the scar which should be significant. Additionally, proteolytic enzymes will cause surrounding soft tissues to necrose and will leave her likely with a "divot". OPERATIVE COURSE: The patient was conveyed to the operating room urgently on 02/24/2019. General anesthesia was induced by anesthesia staff. The right face was sterilely prepped and draped. A circular incision was accomplished with a scalpel. This was a sharp excisional debridement. I excised the skin and subcutaneous tissue as well as a portion of the abscess cavity. I then curetted out some of the abscess cavity. Cultures were obtained. I then irrigated with hydrogen peroxide. I marsupialized the wound with a running locking 3-0 Vicryl Rapide suture. I then packed the wound with 1-inch iodoform gauze and a sterile dressing was applied. The patient was then extubated and conveyed to post-anesthesia care unit where she was in stable condition. The patient will require IV antibiotics and will need to stay in the hospital for several days. When I palpated the base of the wound, I did not feel that the abscess cavity had penetrated the buccal mucosa and I did not see or feel any teeth at the base of the abscess cavity. TRANSINT:[id number] Voice Confirmation ID: [id number] DOCUMENT ID: [id number] OPERATIVE REPORT [id number] GEETHA WELLS ROBERT MD at 1058 CC: [id number] DICTATION DATE: 02/26/19 145 EGG SORTER: 02/26/192022 DIS IN 02/27/19 [id number] [place] [address]
--- NOTE | 2019-03-02 09:37 | MORECARE ---
CASE MANAGEMENT DISCHARGE SUMMARY PATIENT: GEETHA WELLS UNIT: [id number] ADM DATE: 02/24/19 AGE: 23 : [birth year] SEX: F ROOM/BED: D.2226 AUTHOR: RIDDHI,DOC PHYSICIAN: REFERRING PHYSICIAN: CRISTINA OVERTON DO DATE OF SERVICE: 03/02/19 Discharge Plan Patient Name: GEETHA WELLS Facility: [facility]:[place] : 1995 Planned Disposition: Home Anticipated Discharge Date: 02/27/19 Discharge Date: 02/27/2019 Expected LOS: 3 Initial Reviewer: [email or web address] Initial Review Date: 02/27/2019 Generated: 03/02/19 10:36 am Comments DCP- Discharge Planning Updated by [email or web address]: Janine Raymond on 02/27/19 9:[address] Patient Name: GEETHA WELLS Admission Status: ER Accout number: [id number] Admission Date: 02-24-2019 : 1995 Admission Diagnosis: Attending: CRISTINA OVERTON Current LOS: 3 Anticipated DC Date: 02-27-2019 Planned Disposition: Home Primary Insurance: [place] [employer] [facility] Discharge Planning Comments: CM met with patient to complete initial dc planning assessment. CM educated patient on the CM role and verbal consent given by patient to complete assessment. Patient lives at home with her 2 year old, 6 year old and their father. At discharge patient plans to return and feels this is a safe discharge. CM discussed availability of home health, rehab services, and medical equipment. Patient denied known discharge needs at this time. States her mother will pick her up at discharge. CM will continue to follow and will assist as needed with dc plans/needs. Making Machine Catcher: Janine Raymond DCPIA - Discharge Planning Initial Assessment Updated by [email or web address]: Janine Raymond on 02/27/19 10:10 am * Is the patient Alert and Oriented? Yes * How many steps to enter\exit or inside your home? 3/0 * PCP No PCP * Pharmacy [facility] [address] * Preadmission Environment Home with Family * ADLs Independent * Equipment None * List name and contact numbers for known caregivers / representatives who currently or will assist patient after discharge: [facility] - [phone] * Verbal permission to speak to the caregivers and representatives has been obtained from the patient. Yes * Community resources currently utilized None * Additional services required to return to the preadmission environment? No * Can the patient safely return to the preadmission environment? Yes * Has this patient been hospitalized within the prior 30 days at any hospital? No Last DP export: 02/27/19 9:20 a Patient Name: GEETHA WELLS Page [id number] at 0937 All edits/amendments must be made on the electronic document DICTATION DATE: 03/02/19935 SENIOR DIRECTOR: SRAVANI 03/02/19935 RPT#: [id number] ID DATE:02/27/19 STATUS: DIS IN [facility] [address] [place] [address] END OF REPORT
== END 2019-02-27 16:10 | disposition home or self-care (01) | DRG 854 ==
LOC: D.ER 10:06 → D.MS 13:16
PROVIDERS: Family Medicine; Surgery; ADMIT Family Medicine; ATTEND Family Medicine
PROC: 0JB10ZZ Excision of Face Subcutaneous Tissue and Fascia, Open Approach (ICD-10-PCS; principal; 2019-02-24 15:00)
DX: A41.9 Sepsis, unspecified organism (principal); L03.211 Cellulitis of face; L02.03 Carbuncle of face; F17.210 Nicotine dependence, cigarettes, uncomplicated